=== PATIENT | female | born 1995 | race Hispanic/Latino ===

== ENCOUNTER 2018-07-07 10:10 | Emergency (ER) | payer SELFPAY ==
[2018-07-07 10:10] VITALS: BMI 23.9
--- NOTE | 2018-07-07 10:22 | ED.FEMALEGU ---
HPI - Female Genitourinary General Chief complaint: Urogenital-Female Stated complaint: KIDNEY PAIN Time Seen by Provider: 07/07/18 10:18 Source: patient Mode of arrival: ambulatory Limitations: no limitations History of Present Illness HPI Narrative: Patient is a 23-year-old female here for evaluation of bilateral kidney pain. She states that has been going on for the past couple days. She also states that she has dysuria and urinary frequency and burning. She also has blood in her urine. She states in the past she has been told that she has had a kidney infection however when this happened in the past when she came to the emergency department she was told she did not have an infection. No fevers. Related Data Previous Rx's Medication Instructions Recorded phenazopyridine [Pyridium] 100 mg PO TID PRN 3 Days #14 tab 07/07/18 Allergies Allergy/AdvReac Type Severity Reaction Status Date / Time No Known Drug Allergies Allergy Verified 07/07/18 10:40 Review of Systems Constitutional Denies fever(s) and Denies headache(s) ENT Ears, Nose, Mouth, and Throat: Denies headache(s) Cardiovascular Denies chest pain and Denies dyspnea Respiratory Denies dyspnea Gastrointestinal Gastrointestinal: Reports abdominal pain, Denies nausea and Denies vomiting Genitourinary Reports hematuria, Reports flank pain, Denies urinary incontinence, Reports urinary hesitancy and Reports urinary urgency Musculoskeletal Denies myalgias and Denies arthralgias Integumentary/Breasts Denies pruritus, Denies erythema, Denies rash and Denies wounds Neurologic Denies behavioral changes and Denies headache(s) Psychiatric Denies behavioral changes Hematologic/Lymphatic Comments: Not on anticoagulation Allergic/Immunologic Denies urticaria PFSH Medical History Healthy adult (Acute) Surgical History No pertinent past surgical history (Acute) Social History Smoking Status: Never smoker Social History Smoking Status: Never smoker Exam Initial Vital Signs Initial Vital Signs: Vital Signs Temperature 98.6 F 07/07/18 10:30 Pulse Rate 57 L 07/07/18 10:30 Respiratory Rate 16 07/07/18 10:30 Blood Pressure 107/63 07/07/18 10:30 Pulse Oximetry 100 07/07/18 10:30 Const General: cooperative, healthy appearing, comfortable, well developed, well groomed and No acute distress Orientation: alert, awake and oriented x3 HENMT Head: normal to inspection and normocephalic Resp Effort & Inspection: normal respiratory effort Auscultation: clear to auscultation bilaterally Cardio Rate: regular rate Rhythm: regular rhythm Pulses: radial pulses present GI Inspection: non-distended Palpation: soft Skin Lesions: no lesions Rashes: no rashes Neuro General: alert, awake and oriented x3 Extrem General: normal to inspection and capillary refill normal Psych Appearance: grossly normal and well kempt Course Orders Ordered: ED Orders 07/07/18 10:37 Urine Microscopic Stat 07/07/18 11:30 CT kidney ureter bladder (KUB) Stat Vital Signs - 8 hr 07/07/18 10:30 Temperature 98.6 F Pulse Rate 57 L Respiratory Rate 16 Blood Pressure 107/63 Pulse Oximetry 100 MDM - Female Genitourinary Lab Data Attestation: I reviewed the patient's lab results. Lab Results 07/07/18 Range/Units 10:37 Urine RBC None seen (0-5/HPF) Urine WBC 0-1/hpf (0-5/HPF) Ur Squamous Epith Cells 5-10 /hpf H Amorphous Sediment 1+ Urine Bacteria None seen (None) Urine Mucus 1+ H (Negative) Ur Culture Indicated? Cult not indicated Point of Care Testing Test Results Negative Urine Dip Bedside Urine Glucose Negative Bedside Urine Bilirubin - Negative Bedside Urine Ketone - Negative Urine Specific [place] 1.030 Bedside Urine Occult Blood - Negative Bedside Urine pH 6.0 Bedside Urine Protein - Negative Bedside Urine Urobilinogen - Negative Bedside Urine Nitrite - Negative Bedside Urine Leukocytes +/- [address] scan - abdomen: Radiologist's impression: [address] [address] [address] Scan Report Signed Patient: SHAYNA SHERMAN#: [id number] : 1995Acct:[id number] Age/Sex: 23 FDate of Service: 07/07/18 Loc: ED Accession Number: [id number] Procedure: CT kidney ureter bladder (KUB) Ordering Provider: Wenceslao Barton D.O. PROCEDURE: CT KIDNEY URETER BLADDER (KUB) INDICATIONS: right sided pain concern for stones TECHNIQUE: Noncontrast 5 mm thick sections acquired from the diaphragms to the symphysis. 5 mm thick coronal and sagittal reformats were then performed. For radiation dose reduction, the following was used: automated exposure control, adjustment of mA and/or kV according to patient size. COMPARISON: None. FINDINGS: Image quality: Excellent. Lung bases: Lung bases are clear. Heart size is normal. Urinary system: Both kidneys are normal in size. Tiny bilateral nonobstructing renal calculi are seen measures up to 3-4 mm in midpole of left kidney. No hydronephrosis or perinephric fat stranding. Both ureters appear non-dilated throughout their expected courses. Bladder wall thickness is normal; no calcified bladder stones. Other solid organs: Liver is normal in size. Gallbladder is within normal limits. Pancreas is normal in contours. Spleen is normal in size. No adrenal nodules. Peritoneum and bowel: Unenhanced bowel loops demonstrate normal wall thickness and caliber. No free fluid or air. Appendix is visualized and is within normal limits. Fecal stasis throughout the colon is seen. Nodes and vessels: No retroperitoneal or mesenteric adenopathy by size criteria. Aorta and inferior vena cava are normal in caliber. Abdominal wall: No ventral hernias. Pelvis: No free pelvic fluid. No inguinal hernias or adenopathy. Uterus and bilateral adnexa show no gross abnormality. Bones: No suspicious bony lesions. No vertebral body compression fractures. IMPRESSION: 1. Tiny bilateral nonobstructing renal tract. No hydronephrosis. Normal appearing bilateral ureters and urinary bladder. No calcified bladder stone. 2. Constipation. About obstruction. No free fluid or free air. Normal appendix. Dictated by: Markel Chavez M.D. on 07/07/2018 at 12:12 Approved by: Markel Chavez M.D. on 07/07/2018 at 12:29 MDM Narrative Medical decision making narrative: Patient without signs of urinary tract infection. She does have bilateral renal calculi but no ureteral calculi. I did discuss this with the patient. No indication for antibiotics. Informed her that she could take Tylenol and Motrin for any discomfort. Will send home with a prescription for Pyridium for her dysuria. She is in this area for short period of time. Informed her to contact her primary doctor back in [place] so that she has an appointment scheduled for when she returns home. Patient expressed understanding and agreement with plan. Discharge Plan Departure Patient Disposition: Home Clinical Impression: Dysuria, Renal calculus, bilateral Instructions: DI for Dysuria -- Adult Activity Restrictions/Additional Instructions: I do recommend that you take Tylenol and/or Motrin for any discomfort. You can take the Pyridium for any of the urinary discomfort that you are having. I would recommend you contact your primary care doctor to schedule a follow-up for when you return home. Prescriptions: New phenazopyridine [Pyridium] 100 mg tablet 100 mg PO TID PRN (Reason: pain) 3 Days Qty: 14 RF: 0
[2018-07-07 10:30] VITALS: BP 107/63; PULSE 57; RESP 16; TEMP 37; O2SAT 100; BMI 23.9
[2018-07-07 10:44] LABS: Bacteria Urine None Seen; RBC Urine None Seen (0-5/HPF)
[2018-07-07 11:00] LABS: Amorphous Sediment Urine 1+; Culture Indicated Urine Cult Not Indicated; Mucus Urine 1+ (Negative); Squamous Epithelial Cell Urine 5-10 /HPF; WBC Urine 0-1/HPF (0-5/HPF)
--- NOTE | 2018-07-07 11:30 | DI.CT.S_ITS ---
PROCEDURE: CT KIDNEY URETER BLADDER (KUB) INDICATIONS: right sided pain concern for stones TECHNIQUE: Noncontrast 5 mm thick sections acquired from the diaphragms to the symphysis. 5 mm thick coronal and sagittal reformats were then performed. For radiation dose reduction, the following was used: automated exposure control, adjustment of mA and/or kV according to patient size. COMPARISON: None. FINDINGS: Image quality: Excellent. Lung bases: Lung bases are clear. Heart size is normal. Urinary system: Both kidneys are normal in size. Tiny bilateral nonobstructing renal calculi are seen measures up to 3-4 mm in midpole of left kidney. No hydronephrosis or perinephric fat stranding. Both ureters appear non-dilated throughout their expected courses. Bladder wall thickness is normal; no calcified bladder stones. Other solid organs: Liver is normal in size. Gallbladder is within normal limits. Pancreas is normal in contours. Spleen is normal in size. No adrenal nodules. Peritoneum and bowel: Unenhanced bowel loops demonstrate normal wall thickness and caliber. No free fluid or air. Appendix is visualized and is within normal limits. Fecal stasis throughout the colon is seen. Nodes and vessels: No retroperitoneal or mesenteric adenopathy by size criteria. Aorta and inferior vena cava are normal in caliber. Abdominal wall: No ventral hernias. Pelvis: No free pelvic fluid. No inguinal hernias or adenopathy. Uterus and bilateral adnexa show no gross abnormality. Bones: No suspicious bony lesions. No vertebral body compression fractures. IMPRESSION: 1. Tiny bilateral nonobstructing renal tract. No hydronephrosis. Normal appearing bilateral ureters and urinary bladder. No calcified bladder stone. 2. Constipation. About obstruction. No free fluid or free air. Normal appendix. Dictated by: Markel Chavez M.D. on 07/07/2018 at 12:12 Approved by: Markel Chavez M.D. on 07/07/2018 at 12:29
[2018-07-07 13:00] VITALS: BP 98/55; PULSE 63; RESP 16; O2SAT 100
[2018-07-07 13:03] VITALS: BP 98/55; PULSE 71; RESP 16; O2SAT 100
== END 2018-07-07 13:00 | disposition home or self-care (01) ==
PROVIDERS: Emergency Provider Emergency Medicine
DX: N20.0 Calculus of kidney (principal); R30.0 Dysuria
CPT/HCPCS: 74176; 81003; 81015; 81025; 99283; 99284